=== PATIENT | female | born 1965 | race Caucasian/White ===

== ENCOUNTER 2023-02-06 12:13 | Outpatient (CLI) | payer OTHER, SELFPAY | END 2023-02-06 12:14 | disposition home or self-care (01) | LOC: NFLDREF 02-07 07:43 | PROVIDERS: Visit Provider Family Medicine | DX: R30.0 Dysuria (principal); N39.0 Urinary tract infection, site not specified; N30.00 Acute cystitis without hematuria | CPT/HCPCS: 87086; 87186 ==